=== PATIENT | female | born 1990 | race Caucasian/White ===

== ENCOUNTER 2020-09-25 15:32 | Emergency (ER) | payer BC ==
[~2020-09-25] VITALS: Ht 144.8 cm; Wt 68.2 kg
[2020-09-25] MEDS ORDERED: KETOROLAC TROMETHAMINE 30 MG/ML VIAL IM ONE (16:15)
[2020-09-25 16:40] VITALS: BP 128/90
== END 2020-09-25 16:41 | disposition home or self-care (01) ==
LOC: EMS 15:32
DX: H60.92 Unspecified otitis externa, left ear (principal)
CPT/HCPCS: 96372; 99283; J1885